=== PATIENT | female | born 1955 ===

== ENCOUNTER → 2018-12-27 | Outpatient (CLI) | payer OTHER ==
[~2018-12-27] MED LIST: FEXPSEER PO; KRILL OIL 1,001 EAC1 PO; Multiple Vitam1 EAC1 PO; VAGIFEM10 MCG VG; VITAMIN D-32000 UNIT PO
== END | disposition home or self-care (01) ==
LOC: LAB SHORT 11:05 → LAB EV 11:05
DX: N39.0 Urinary tract infection, site not specified (principal)
CPT/HCPCS: 87077; 87086; 87186